=== PATIENT | male | born 1965 | race Caucasian/White ===

== ENCOUNTER 2017-07-31 09:20 | Emergency (ER) | payer MEDICAID ==
[2016-04-06 09:34] VITALS: BMI 30.6
[~2017-07-31 09:20] MED LIST: NORVASC5 MG PO; OMEPRAZOLE20 M1 PO; ULTRAM50 MG PO
== END 2017-07-31 11:10 | disposition home or self-care (01) ==
LOC: D.ER 09:20
DX: S83.91XA Sprain of unspecified site of right knee, initial encounter (principal); X58.XXXA Exposure to other specified factors, initial encounter; Y93.89 Activity, other specified; Y92.89 Other specified places as the place of occurrence of the external cause; M25.561 Pain in right knee; I10 Essential (primary) hypertension; K21.9 Gastro-esophageal reflux disease without esophagitis